=== PATIENT | male | born 1970 | race Caucasian/White ===

== ENCOUNTER 2017-05-26 16:16 | Emergency (ER) | payer MEDICARE ==
[2017-05-26 16:30] VITALS: BP 129/84; PULSE 79; RESP 20; TEMP 98.1; O2SAT 100
--- NOTE | 2017-05-26 17:12 | PD ---
Physical Exam Time Seen by Provider: 17:09 Narrative 46yo M c/o decreased energy since last night. "Walked from [place] to [facility]" yesterday. Says he feels weak. Says he's having chest cramps and dehydration. "Little bit" of SOB. Patient seen in triage. VS reviewed. Patient awaiting bed placement. Data Data Last Documented VS Vital Signs Date Time Temp Pulse Resp B/P Pulse Ox O2 Delivery O2 Flow Rate FiO2 05/26/17 16:30 98.1 79 20 129/84 100 Room Air MDM Supervised Visit with MARC: Jelly Fernandez May 26, 2017 17:12
[2017-05-26 20:47] VITALS: BP 138/92; PULSE 66; RESP 16; O2SAT 100
--- NOTE | 2017-05-26 21:42 | PD ---
HPI Chief Complaint: Cardiac Complaint Time Seen by Provider: 21:04 Travel History International Travel<30 days: No Contact w/Intl Traveler<30days: No Traveled to known affect area: No PFSH Past Medical History Cardiac Catheterization: Yes (04/2016) High Cholesterol: Yes Hypertension: Yes Myocardial Infarction: Yes (2015) Influenza Vaccination: No Past Surgical History Abdominal Surgery: Yes (part of colon removed) Appendectomy: Yes Cardiac Surgery: Yes ( stent 04/2016) Social History Alcohol Use: Yes Tobacco Use: Yes Substance Use: No Allergies-Medications (Allergen,Severity, Reaction): Coded Allergies: No Known Allergies (Unverified , 05/26/17) Reported Meds & Prescriptions Reported Meds & Active Scripts Active Active Prescriptions or Reported Medications Unobtainable Data Data Last Documented VS Vital Signs Date Time Temp Pulse Resp B/P Pulse Ox O2 Delivery O2 Flow Rate FiO2 05/27/17 01:30 67 16 108/67 100 05/26/17 20:47 Room Air 05/26/17 16:30 98.1 Orders Electrocardiogram (05/26/17 ) Ckmb (Isoenzyme) Profile (05/26/17 21:33) Complete Blood Count With Diff (05/26/17 21:33) Comprehensive Metabolic Panel (05/26/17 21:33) Magnesium (Mg) (05/26/17 21:33) Prothrombin Time / Inr (Pt) (05/26/17 21:33) Act Partial Throm Time (Ptt) (05/26/17 21:33) Troponin I (05/26/17 21:33) Chest, Single Ap (05/26/17 21:33) Ecg Monitoring (05/26/17 21:33) Iv Access Insert/Monitor (05/26/17 21:33) Oximetry (05/26/17 21:33) Oxygen Administration (05/26/17 21:33) Aspirin Chew (Aspirin Chew) (05/26/17 21:45) Sodium Chloride 0.9% Flush (Ns Flush) (05/26/17 21:45) Sodium Chlorid 0.9% 500 Ml Inj (Ns 500 M (05/26/17 21:45) CKMB (05/26/17 21:30) CKMB% (05/26/17 21:30) Sodium Chlor 0.9% 1000 Ml Inj (Ns 1000 M (05/26/17 23:00) Sodium Chlor 0.9% 1000 Ml Inj (Ns 1000 M (05/27/17 00:15) Labs Laboratory Tests Test 05/26/17 21:30 White Blood Count 11.4 TH/MM3 Red Blood Count 5.53 MIL/MM3 Hemoglobin 16.8 GM/DL Hematocrit 48.9 % Mean Corpuscular Volume 88.4 FL Mean Corpuscular Hemoglobin 30.3 PG Mean Corpuscular Hemoglobin 34.3 % Concent Red Cell Distribution Width 13.7 % Platelet Count 209 TH/MM3 Mean Platelet Volume 9.6 FL Neutrophils (%) (Auto) 60.0 % Lymphocytes (%) (Auto) 27.8 % Monocytes (%) (Auto) 10.1 % Eosinophils (%) (Auto) 1.6 % Basophils (%) (Auto) 0.5 % Neutrophils # (Auto) 6.8 TH/MM3 Lymphocytes # (Auto) 3.2 TH/MM3 Monocytes # (Auto) 1.1 TH/MM3 Eosinophils # (Auto) 0.2 TH/MM3 Basophils # (Auto) 0.1 TH/MM3 CBC Comment DIFF FINAL Differential Comment Prothrombin Time 12.0 SEC Prothromb Time International 1.1 RATIO Ratio Activated Partial 27.2 SEC Thromboplast Time Sodium Level 132 MEQ/L Potassium Level 3.2 MEQ/L Chloride Level 96 MEQ/L Carbon Dioxide Level 26.8 MEQ/L Anion Gap 9 MEQ/L Blood Urea Nitrogen 13 MG/DL Creatinine 1.14 MG/DL Estimat Glomerular Filtration 69 ML/MIN Rate Random Glucose 78 MG/DL Calcium Level 10.1 MG/DL Magnesium Level 1.9 MG/DL Total Bilirubin 1.1 MG/DL Aspartate Amino Transf 57 U/L (AST/SGOT) Alanine Aminotransferase 37 U/L (ALT/SGPT) Alkaline Phosphatase 122 U/L Total Creatine Kinase 1761 U/L Creatine Kinase MB 11.9 NG/ML Creatine Kinase MB % 0.7 % Troponin I LESS THAN 0.02 NG/ML Total Protein 8.1 GM/DL Albumin 4.7 GM/DL MDM Medical Decision Making Medical Screen Exam Complete: Yes Emergency Medical Condition: Yes Diagnosis Primary Impression: Dehydration Scripts Unable to Obtain Active Prescriptions or Reported Meds Disposition: 01 DISCHARGE HOME Condition: Stable Blas Negrete MD May 26, 2017 21:42
[2017-05-26] MEDS ORDERED: SODIUM CHLORIDE 0.9% FLUSH 10 ML FLUSH IVF PRN (21:45)
[2017-05-26] MEDS ORDERED: ASPIRIN 81 MG CHEW TAB PO ONE (21:45)
[2017-05-26] MEDS ORDERED: SODIUM CHLORID 0.9% 500 ML INJ 500 ML IV ONE (21:45)
[2017-05-26 22:02] LABS: AUTOMATED NEUTROPHIL # 6.8 TH/MM3 (1.8-7.7); BASOPHIL # 0.1 TH/MM3 (0-0.2); BASOPHIL % 0.5 % (0.0-2.0); EOSINOPHIL # 0.2 TH/MM3 (0-0.4); EOSINOPHIL % 1.6 % (0.0-4.0); HEMATOCRIT 48.9 % (39.0-51.0); HEMO FLAGS DIFF FINAL; LYMPH % 27.8 % (9.0-44.0); LYMPHOCYTE # 3.2 TH/MM3 (1.0-4.8); MEAN CELL VOLUME 88.4 FL (80.0-100.0); MEAN CORPUSCULAR HEMOGLOBIN 30.3 PG (27.0-34.0); MEAN CORPUSCULAR HGB CONC 34.3 % (32.0-36.0); MONO % 10.1 % (0.0-8.0); PLATELET COUNT 209 TH/MM3 (150-450); RED BLOOD COUNT 5.53 MIL/MM3 (4.50-5.90); RED CELL DISTRIBUTION WIDTH 13.7 % (11.6-17.2); WHITE BLOOD COUNT 11.4 TH/MM3 (4.0-11.0)
[2017-05-26 22:08] LABS: APTT (PATIENT) 27.2 SEC (24.3-30.1); INTERNATIONAL NORMALIZED RATIO 1.1 RATIO
[2017-05-26 22:17] LABS: ANION GAP 9 MEQ/L (5-15); AST (GOT) 57 U/L (15-37); BICARBONATE 26.8 MEQ/L (21.0-32.0); BLOOD UREA NITROGEN 13 MG/DL (7-18); CHLORIDE 96 MEQ/L (98-107); GLOMERULAR FILTRATION RATE 69 ML/MIN (>89); MAGNESIUM 1.9 MG/DL (1.5-2.5); POTASSIUM 3.2 MEQ/L (3.5-5.1); SODIUM (NA) 132 MEQ/L (136-145)
[2017-05-26 22:19] LABS: ALT (GPT) 37 U/L (12-78)
[2017-05-26 22:32] LABS: ALKALINE PHOSPHATASE 122 U/L (45-117); CREATINE KINASE 1761 U/L (39-308); TOTAL BILIRUBIN ADULT 1.1 MG/DL (0.2-1.0)
--- NOTE | 2017-05-26 22:32 | RADRPT ---
EXAM DATE/TIME: 05/26/2017 21:45 [facility] COMPARISON: No previous studies available for comparison. INDICATIONS : Chest pain for a day. MEDICAL HISTORY : Hypertension. SURGICAL HISTORY : None. ENCOUNTER: Initial ACUITY: 2 days PAIN SCORE: 6/10 LOCATION: Bilateral chest FINDINGS: A single view of the chest demonstrates the lungs to be symmetrically aerated without evidence of mas s, infiltrate or effusion. The cardiomediastinal contours are unremarkable. Osseous structures are intact. CONCLUSION: The lungs are clear. Collin Ridley MD on May 26, 2017 at 22:30 Board Certified Radiologist. This report was verified electronically.
[2017-05-26 22:45] LABS: CKMB 11.9 NG/ML (0.5-3.6)
[2017-05-26] MEDS ORDERED: SODIUM CHLOR 0.9% 1000 ML INJ 1,000 ML IV ONE (23:00)
[2017-05-27] MEDS ORDERED: SODIUM CHLOR 0.9% 1000 ML INJ 1,000 ML IV ONE (00:15)
[2017-05-27 01:30] VITALS: BP 108/67
--- NOTE | 2017-05-27 14:46 | EKG ---
Date Performed: 05/26/2017 Time Performed: 17:24:07 PTAGE: 46 years EKG: Sinus rhythm WITH SINUS ARRHYTHMIA NORMAL ECG NO PREVIOUS TRACING DOCTOR: Jane Hedrick Interpretating Date/Time 05/27/2017 14:44:46
--- NOTE | 2017-05-27 22:44 | PD ---
HPI Chief Complaint: Cardiac Complaint Time Seen by Provider: 21:04 Travel History International Travel<30 days: No Contact w/Intl Traveler<30days: No Traveled to known affect area: No History of Present Illness HPI Patient is a 46-year-old male presents emergency department for evaluation of weakness and possible dehydration. Patient states is currently walking home to [place] and started his walking [place] today. He states he got all the way here and then felt very weak and dehydrated and needed to come in and be seen. He states he had some mild palpitations as well but no chest pain. He states he had a stress test 2 months ago and [place] which was normal. Denies any IV drug use denies any alcohol ingestion denies any shortness of breath abdominal pain nausea or vomiting. He states his symptoms started just prior to arrival. [facility] Past Medical History Cardiac Catheterization: Yes (04/2016) High Cholesterol: Yes Hypertension: Yes Myocardial Infarction: Yes (2015) Influenza Vaccination: No Past Surgical History Abdominal Surgery: Yes (part of colon removed) Appendectomy: Yes Cardiac Surgery: Yes ( stent 04/2016) Social History Alcohol Use: Yes Tobacco Use: Yes Substance Use: No Allergies-Medications (Allergen,Severity, Reaction): Coded Allergies: No Known Allergies (Unverified , 05/26/17) Reported Meds & Prescriptions Reported Meds & Active Scripts Active Active Prescriptions or Reported Medications Unobtainable Review of Systems Except as stated in HPI: all other systems reviewed are Neg Physical Exam Narrative GENERAL: Well-developed well-nourished no obvious distress, unkempt. SKIN: Focused skin assessment warm/dry. HEAD: Atraumatic. Normocephalic. EYES: Pupils equal and round. No scleral icterus. No injection or drainage. ENT: No nasal bleeding or discharge. Mucous membranes pink and moist. Very poor. Dentition with only a few teeth which are stained and have deep caries. NECK: Trachea midline. No JVD. CARDIOVASCULAR: Regular rate and rhythm. No murmur appreciated. RESPIRATORY: No accessory muscle use. Clear to auscultation. Breath sounds equal bilaterally. GASTROINTESTINAL: Abdomen soft, non-tender, nondistended. Hepatic and splenic margins not palpable. MUSCULOSKELETAL: No obvious deformities. No clubbing. No cyanosis. No edema. NEUROLOGICAL: Awake and alert. No obvious cranial nerve deficits. Motor grossly within normal limits. Normal speech. PSYCHIATRIC: Appropriate mood and affect; insight and judgment normal. Data Data Last Documented VS Vital Signs Date Time Temp Pulse Resp B/P Pulse Ox O2 Delivery O2 Flow Rate FiO2 05/27/17 01:30 67 16 108/67 100 05/26/17 20:47 Room Air 05/26/17 16:30 98.1 Orders Electrocardiogram (05/26/17 ) Ckmb (Isoenzyme) Profile (05/26/17 21:33) Complete Blood Count With Diff (05/26/17 21:33) Comprehensive Metabolic Panel (05/26/17 21:33) Magnesium (Mg) (05/26/17 21:33) Prothrombin Time / Inr (Pt) (05/26/17 21:33) Act Partial Throm Time (Ptt) (05/26/17 21:33) Troponin I (05/26/17 21:33) Chest, Single Ap (05/26/17 21:33) Ecg Monitoring (05/26/17 21:33) Iv Access Insert/Monitor (05/26/17 21:33) Oximetry (05/26/17 21:33) Oxygen Administration (05/26/17 21:33) Aspirin Chew (Aspirin Chew) (05/26/17 21:45) Sodium Chloride 0.9% Flush (Ns Flush) (05/26/17 21:45) Sodium Chlorid 0.9% 500 Ml Inj (Ns 500 M (05/26/17 21:45) CKMB (05/26/17 21:30) CKMB% (05/26/17 21:30) Sodium Chlor 0.9% 1000 Ml Inj (Ns 1000 M (05/26/17 23:00) Sodium Chlor 0.9% 1000 Ml Inj (Ns 1000 M (05/27/17 00:15) Labs Laboratory Tests Test 05/26/17 21:30 White Blood Count 11.4 TH/MM3 Red Blood Count 5.53 MIL/MM3 Hemoglobin 16.8 GM/DL Hematocrit 48.9 % Mean Corpuscular Volume 88.4 FL Mean Corpuscular Hemoglobin 30.3 PG Mean Corpuscular Hemoglobin 34.3 % Concent Red Cell Distribution Width 13.7 % Platelet Count 209 TH/MM3 Mean Platelet Volume 9.6 FL Neutrophils (%) (Auto) 60.0 % Lymphocytes (%) (Auto) 27.8 % Monocytes (%) (Auto) 10.1 % Eosinophils (%) (Auto) 1.6 % Basophils (%) (Auto) 0.5 % Neutrophils # (Auto) 6.8 TH/MM3 Lymphocytes # (Auto) 3.2 TH/MM3 Monocytes # (Auto) 1.1 TH/MM3 Eosinophils # (Auto) 0.2 TH/MM3 Basophils # (Auto) 0.1 TH/MM3 CBC Comment DIFF FINAL Differential Comment Prothrombin Time 12.0 SEC Prothromb Time International 1.1 RATIO Ratio Activated Partial 27.2 SEC Thromboplast Time Sodium Level 132 MEQ/L Potassium Level 3.2 MEQ/L Chloride Level 96 MEQ/L Carbon Dioxide Level 26.8 MEQ/L Anion Gap 9 MEQ/L Blood Urea Nitrogen 13 MG/DL Creatinine 1.14 MG/DL Estimat Glomerular Filtration 69 ML/MIN Rate Random Glucose 78 MG/DL Calcium Level 10.1 MG/DL Magnesium Level 1.9 MG/DL Total Bilirubin 1.1 MG/DL Aspartate Amino Transf 57 U/L (AST/SGOT) Alanine Aminotransferase 37 U/L (ALT/SGPT) Alkaline Phosphatase 122 U/L Total Creatine Kinase 1761 U/L Creatine Kinase MB 11.9 NG/ML Creatine Kinase MB % 0.7 % Troponin I LESS THAN 0.02 NG/ML Total Protein 8.1 GM/DL Albumin 4.7 GM/DL MDM Medical Decision Making Medical Screen Exam Complete: Yes Emergency Medical Condition: Yes Interpretation(s) EKG shows sinus rhythm with sinus arrhythmia, normal axis normal R-wave progression. No concerning ST segment changes. Intervals within normal limits. This is a normal EKG. Differential Diagnosis Dehydration, acute kidney injury, rhabdomyolysis, ACS unlikely, VT unlikely, poor social circumstance. Narrative Course Patient roomed in emergency department, his labs do show minimal elevation in total CK. Patient was given 2-1/2 L of fluid. Discussed with him that given his levels he could consider staying in the hospital but he would like to be discharged. Discussed with her need to stay hydrated on the road. Discussed frequent stops and return to ED criteria. He is stable for discharge. Diagnosis Primary Impression: Dehydration Patient Instructions: General Instructions, Dehydration (ED) Departure Forms: Tests/Procedures Scripts Unable to Obtain Active Prescriptions or Reported Meds Disposition: 01 DISCHARGE HOME Condition: Stable Blas Negrete MD May 27, 2017 22:44
== END 2017-05-27 01:42 | disposition home or self-care (01) ==
LOC: NEPD 16:16
DX: E86.0 Dehydration (principal); I10 Essential (primary) hypertension; E78.00 Pure hypercholesterolemia, unspecified; I25.2 Old myocardial infarction; Z72.0 Tobacco use; R06.02 Shortness of breath
CPT/HCPCS: 71010; 80053; 82550; 82552; 83735; 84484; 85025; 85610; 85730; 93005; 96360; 96361; 99285; J7030; J7040